=== PATIENT | female | born 1975 | race Caucasian/White ===

== ENCOUNTER → 2021-09-07 13:05 | Outpatient (CLI) | payer BC, SELFPAY | PROVIDERS: Visit Provider Nurse Practitioner Family | DX: Z20.822 Contact with and (suspected) exposure to COVID-19 (principal) | CPT/HCPCS: C9803; U0003; U0005 ==

== ENCOUNTER → 2021-09-19 08:14 | Outpatient (CLI) | payer BC, SELFPAY ==
[2021-09-19 10:19] LABS: Alanine Aminotransferase 15 U/L (12-78); Albumin Level 4.2 g/dl (3.5-5.0); Albumin/Globulin Ratio 1.5 (1.1-1.8); Alkaline Phosphatase 124 U/L (38-126); Anion Gap 11.5 mEq/L (5-15); Aspartate Amino Transferase 26 U/L (14-36); Bilirubin,Total 0.5 mg/dl (0.2-1.3); Blood Urea Nitrogen 11 mg/dl (7-17); Calcium 9.2 mg/dl (8.4-10.2); Carbon Dioxide 27 mmol/L (22.0-30.0); Chloride 103 mmol/L (98-107); Estimated Glomerular Filt Rate 108 ml/min (>60); GFR (African American) 131 ML/MIN (>60); Globulin 2.8 g/dL (1.3-3.2); Glucose 90 mg/dl (74-100); Potassium 4.5 mmoL/L (3.5-5.1); Sodium 137 mmol/L (136-145)
== END ==
PROVIDERS: PCP Internal Medicine; Visit Provider Internal Medicine
DX: G25.0 Essential tremor (principal); K21.9 Gastro-esophageal reflux disease without esophagitis; F41.1 Generalized anxiety disorder; E66.9 Obesity, unspecified; R60.0 Localized edema
CPT/HCPCS: 36415; 80053

== ENCOUNTER → 2021-09-26 08:12 | Outpatient (CLI) | payer BC, SELFPAY | PROVIDERS: Visit Provider Nurse Practitioner | DX: Z20.822 Contact with and (suspected) exposure to COVID-19 (principal) | CPT/HCPCS: C9803; U0003; U0005 ==

== ENCOUNTER → 2021-09-30 09:05 | Outpatient (CLI) | payer BC, SELFPAY | PROVIDERS: Visit Provider Nurse Practitioner | DX: Z20.822 Contact with and (suspected) exposure to COVID-19 (principal) | CPT/HCPCS: C9803; U0003; U0005 ==

== ENCOUNTER 2021-10-26 19:22 | Emergency (ER) | payer BC, SELFPAY ==
[2021-10-26 20:00] VITALS: BP 141/85; PULSE 71; RESP 18; TEMP 36.8; O2SAT 99; BMI 40.4
[2021-10-26 20:16] LABS: UTC Influenza A Antigen Negative (Negative); UTC Strep Screen (Rapid) Negative (Negative)
[2021-10-26 20:17] LABS: UTC Influenza B Antigen Negative (Negative)
--- NOTE | 2021-10-26 20:17 | HMH.EDUTC ---
[facility] [place] Disposition Clinical Impression: Upper respiratory infection, viral Disposition: Home, Self-Care Condition on Discharge: Good Instructions: DI for Viral Upper Respiratory Infection -- Adult, DI for COVID-19 (Suspected or Confirmed ) Additional Instructions: covid swab was sent to lab, call tomorrow for results. self isolate until test results are known to be negative No sign of a bacterial infection. Likely viral. Viruses can take 7-14 days to run their course. Nasal saline and bulb syringe or nose Felisha to remove nasal drainage to help with nasal congestion. Hard to eat, drink, sleep with nasal congestion so important to keep this cleaned out. Monitor temp. Tylenol or Motrin as needed for pain or fever Encourage fluids, water, Gatorade, Powerade, Pedialyte if /toddler/child Warm salt water gargles Warm fluids Sore throat lozenges Sleep elevated Humidifier/vaporizer Follow-up immediately for new or worsening symptoms or no noticeable improvement over the next 48-72 hours. Referrals: Ale Deluna MD [Primary Care Provider] - Time of Disposition: 20:21 Medical Decision Making - Lang Inquiry Pt receiving controlled substance: No - Lab Data Lab Results 10/26/21 20:12: Influenza Type A Ag Negative, Influenza Type B Ag Negative 10/26/21 20:12: Strep Scn Rapid Clinic Negative Orders (Tests/Meds): ORDERS Category Date Time Status Covid-19 Nasal PCR ([facility]) Routine Lab 10/26/21 20:00 Received Strep Screen Confirmation Stat Micro 10/26/21 20:12 Received [facility] [place] HPI - General Chief complaint: Urgent Treatment Center Stated complaint: sore throat, cough, BARNEY body aches covid test Time Seen by Provider: 10/26/21 20:18 Mode of Arrival: Ambulatory Source of Information: Patient Limitations: No Limitations - History of Present Illness Provider Complaint: 46 yr old female presents for sore throat,fever,body aches, nasal congestion and cough that started yesterday and did a home test that had a faint line - Related Data Allergies Allergy/AdvReac Type Severity Reaction Status Date / Time No Known Allergies Allergy Unverified 03/17/18 13:48 [facility] History - Hepatitis A Screen Attestation statement:: This patient has been screened for Hepatitis A risk factors. I have reviewed the patient's past medical history: Yes Medical History: Reports:: Asthma ROS Obtained: Yes Systems reviewed as appropriate & no additional complaints - Constitutional Constitutional: Reports system reviewed and no additional complaints, except as docu, Reports body ache, Reports chills, Reports fever(s) - Eyes Eyes: Reports system reviewed and no additional complaints, except as docu, Denies blurry vision - ENT Ears, Nose, Mouth, and Throat: Reports system reviewed and no additional complaints, except as docu, Reports nasal congestion, Reports nasal discharge, Reports sore throat - Cardiovascular Cardiovascular: Reports system reviewed and no additional complaints, except as docu, Denies chest pain - Respiratory Respiratory: Reports system reviewed and no additional complaints, except as docu, Reports cough - Gastrointestinal Gastrointestingal: Reports: system reviewed and no additional complaints, except as docu. Denies: abdominal pain - Musculoskeletal Musculoskeletal: Reports system reviewed and no additional complaints, except as docu, Denies joint pain - Integumentary/Breasts Skin/Breast: Reports system reviewed and no additional complaints, except as docu, Denies rash - Neurologic Neurologic: Reports system reviewed and no additional complaints, except as docu, Denies dizziness - Endocrine Endocrine: Reports system reviewed and no additional complaints, except as docu, Denies fatigue - Hematologic/Lymphatic Henatologic/Lymphatic: Reports system reviewed and no additional complaints, except as docu, Denies easy bruising - Allergic/Immunologic Allergic/Immunologic: Reports system reviewed a
[2021-10-26 20:20] VITALS: BP 141/85; PULSE 71; RESP 18; TEMP 36.8; O2SAT 99
== END 2021-10-26 20:25 | disposition home or self-care (01) ==
PROVIDERS: Emergency Provider Nurse Practitioner Family; PCP Internal Medicine
DX: J06.9 Acute upper respiratory infection, unspecified (principal); J02.9 Acute pharyngitis, unspecified
CPT/HCPCS: 87804; 87880; 99203; 99212; 99213; C9803; G0463; U0003; U0005

== ENCOUNTER 2021-11-27 09:52 | Emergency (ER) | payer BC, SELFPAY ==
--- NOTE | 2021-11-27 10:04 | XR_ITS ---
FINAL REPORT TECHNIQUE: Chest PA & Lateral CLINICAL HISTORY: postcovid x 1 mos ago, non smoker, persistant cough FINDINGS: 2 views of the chest were performed. There are multiple sternotomy wires. The heart size is normal. The mediastinum is within normal limits. There is no acute cardiopulmonary process. There are no pleural effusions. There is no pneumothorax. The bony thorax appears intact. IMPRESSION: No acute cardiopulmonary process. Reviewed, Interpreted and Dictated by Salinas Lorenzo MD Transcribed by Abelardo Sandhu Authenticated by Salinas Lorenzo MD on 11/27/2021 12:26:42 PM [facility]
[2021-11-27 11:12] VITALS: BP 144/79; PULSE 69; RESP 18; TEMP 36.8; O2SAT 97; BMI 40.7
--- NOTE | 2021-11-27 11:52 | HMH.EDUTC ---
[facility] [place] Clinical Impression: Bronchitis Sinusitis Qualifiers: Sinusitis location: unspecified location Chronicity: unspecified Qualified Code(s): J32.9 - Chronic sinusitis, unspecified Disposition: Home, Self-Care Condition on Discharge: Good Instructions: Sinusitis, DI for Sinusitis Additional Instructions: ? Start antibiotic today. Be sure to complete entire prescription even if feeling better ? Monitor temp. Tylenol every 4 hours as needed and / or ibuprofen every 6 hours as needed ( As long as your primary care physician has told you that it ok to take both. For fever/aches/pains ER if no less than 101 despite Tylenol or Motrin ? Humidifier/vaporizer or hot steamy shower ? Inhaler every 4-6 hours as needed like we discussed. If unsure how to use it, ask pharmacist to demonstrate how. Should help open airways and improve cough, wheezing, and shortness of breath ? Mucinex during the day for your cough and cough suppressant only at night. Be sure to drink lots of water. Insurance may not cover a prescriptions for mucinex. Might be cheaper to get 400mg tablets and take 2 tablet in the morning, mid-day and evening with lots of water. *Start steroid today. Helps with inflammation therefore, cough and wheezing. Follow directions on the package. Reviewed side effects. Patient reports taking them before. Follow up IMMEDIATELY for new or worsening of symptoms OR no noticeable improvement over the next 48-72 hours. 911 immediately for any life threatening symptoms such as chest pain or difficulty breathing Prescriptions: Benzonatate [Benzonatate 100mg cap] 100 mg PO Q8HP PRN #15 cap PRN Reason: Cough Transmission Status: Received by [facility] Amoxicillin/Potassium Clav [Amox-Clav 875-125 mg Tablet] 1 tab PO BID #20 tab Transmission Status: Received by [facility] predniSONE [Prednisone 20mg Tab] 20 mg PO BID #10 tab Transmission Status: Received by [facility] Referrals: Ale Deluna MD [Primary Care Provider] - As needed Time of Disposition: 12:08 Medical Decision Making - Lang Inquiry Pt receiving controlled substance: No Lang was queried for this patient: No Vital Signs: 11/27/21 11:12 11/27/21 12:25 Temperature 98.3 F 98.3 F Temperature Source Oral Pulse Rate 69 Pulse Rate [Left] 69 Respiratory Rate 18 18 Blood Pressure 144/79 H Blood Pressure [Right Arm] 144/79 H Blood Pressure Mean [Right Arm] 100 02 Sat by Pulse Oximetry 97 - Radiology Data #1 Image(s): Chest Image Reviewed: Yes I reviewed the patient's radiology image Preliminary Findings: Normal/NAD [facility] [place] - General Stated complaint: cough, congestion Time Seen by Provider: 11/27/21 11:52 Mode of Arrival: Ambulatory Source of Information: Patient Limitations: No Limitations Description of Symptoms (Recalled from Triage Doc. by RN): pt had covid about one mo ago. cough never went away. pt states her cough and chest congestion is worsening. HEENT Symptoms (Recalled from RN notes): No Resp Symptoms (Recalled from RN notes): Yes Skin Symptoms (Recalled from RN notes): No MS Symptoms (Recalled from RN notes): No Functional Status (Recalled from RN notes): wnl - History of Present Illness Provider Complaint: Patient states that she had COVID about a month ago and doesnt feel like she really got over it she has been sick on and off since States that she has bene having sinus pain and pressure, cough, and drianage States that she feels like it is in her sinuses draining into her chest area so she came in to get checked out - Related Data Previous Rx's Medication Instructions Recorded Amoxicillin/Potassium Clav 1 tab PO BID #20 tab 11/27/21 [Amox-Clav 875-125 mg Tablet] Benzonatate [Benzonatate 100mg 100 mg PO Q8HP PRN #15 cap 11/27/21 cap] predniSONE [Prednisone 20mg 20 mg PO BID #10 tab 11/27/21 Tab] Allergies Allergy/AdvReac Type Severity Reaction Sta
[2021-11-27 12:25] VITALS: BP 144/79; PULSE 69; RESP 18; TEMP 36.8
== END 2021-11-27 12:26 | disposition home or self-care (01) ==
PROVIDERS: Emergency Provider Nurse Practitioner; PCP Internal Medicine
DX: J20.9 Acute bronchitis, unspecified (principal); J32.9 Chronic sinusitis, unspecified
CPT/HCPCS: 71046; 99213; G0463

== ENCOUNTER → 2023-06-26 09:22 | Outpatient (CLI) | payer BC, OTHER, SELFPAY ==
[2023-06-26 09:44] LABS: Basophils # 0.1 K/mm3 (0-0.2); Basophils % 0.8 % (0.1-2.0); Eosinophils # 0.2 K/mm3 (0.0-0.4); Eosinophils % 3.4 % (0.1-12.0); Hematocrit 34.9 % (37.0-47.0); Hemoglobin 11.7 g/dL (12.2-16.2); Lymphocytes # 1.8 K/mm3 (0.7-4.5); Lymphocytes % 27.5 % (10-50); Mean Corpuscular HGB Conc 33.4 g/dL (31.8-35.4); Mean Corpuscular Hemoglobin 28.2 pg (27.0-31.2); Mean Corpuscular Volume 84.5 fl (81-99); Mean Platelet Volume 9.6 fl (7.4-10.4); Monocytes # 0.4 K/mm3 (0.1-1.0); Monocytes % 6.2 % (1.7-9.3); Neutrophils % 62.1 % (37.0-80.0); Platelet Count 294 K/mm3 (142-424); Red Blood Count 4.13 M/mm3 (4.20-5.40); Red Cell Distribution Width 14.8 % (11.5-17.5); White Blood Count 6.4 K/mm3 (4.8-10.8)
[2023-06-26 10:33] LABS: Alanine Aminotransferase 22 U/L (12-78); Albumin Level 4.2 g/dl (3.5-5.0); Albumin/Globulin Ratio 1.3 (1.1-1.8); Alkaline Phosphatase 154 U/L (38-126); Anion Gap 15.4 mEq/L (5-15); Aspartate Amino Transferase 32 U/L (14-36); Bilirubin,Total 0.5 mg/dl (0.2-1.3); Blood Urea Nitrogen 14 mg/dl (7-17); Calcium 9.3 mg/dl (8.4-10.2); Carbon Dioxide 25 mmol/L (22.0-30.0); Chloride 102 mmol/L (98-107); Estimated Glomerular Filt Rate 90 ml/min (>60); GFR (African American) 109 ML/MIN (>60); Globulin 3.3 g/dL (1.3-3.2); Glucose 101 mg/dl (74-100); Potassium 4.4 mmoL/L (3.5-5.1); Sodium 138 mmol/L (136-145); Total Protein,Serum 7.5 g/dl (6.3-8.2)
== END ==
PROVIDERS: PCP Internal Medicine; Visit Provider Internal Medicine
DX: Z12.11 Encounter for screening for malignant neoplasm of colon (principal); R25.1 Tremor, unspecified
CPT/HCPCS: 36415; 80053; 85025

== ENCOUNTER 2023-07-06 09:00 | Emergency (ER) | payer BC, SELFPAY ==
[2023-07-06 09:30] VITALS: BP 154/89; PULSE 66; RESP 18; TEMP 36.9; O2SAT 95; BMI 42.8
--- NOTE | 2023-07-06 09:31 | EXP.UTC ---
Discharge Plan Disposition Patient Disposition: Home, Self-Care Condition: Good Prescriptions Prescriptions: New benzonatate [benzonatate] 100 mg capsule 100 mg PO TIDP PRN (Reason: Cough) Qty: 30 0RF methylprednisolone 4 mg Tablets,Dose Pack 4 mg PO DIRECTED Qty: 21 0RF guaifenesin [Mucinex] 600 mg tablet extended release 12hr 600 - 1,200 mg PO BIDP PRN (Reason: Congestion) Qty: 30 0RF azithromycin [Zithromax] 250 mg tablet 250 mg PO UD DOSE PK Qty: 6 0RF Rx Instructions: Take two (2) tablets today, then one (1) tablet days #2 thru #5 No Action citalopram 40 mg tablet 40 mg PO DAILY Patient Comments: TAKE ONE TABLET BY MOUTH EVERY DAY phentermine 37.5 mg tablet 37.5 mg PO DAILY Patient Comments: TAKE ONE TABLET BY MOUTH EVERY DAY propranolol 10 mg tablet 10 mg PO DAILY Patient Comments: TAKE ONE TABLET BY MOUTH TWICE DAILY amoxicillin 875 mg tablet 875 mg PO BID Patient Comments: TAKE ONE TABLET BY MOUTH EVERY TWELVE HOURS FOR 10 DAYS -- FINISH ALL MEDICINE -- pantoprazole 40 mg tablet,delayed release (DR/EC) 40 mg PO DAILY Patient Comments: TAKE ONE TABLET BY MOUTH EVERY DAY furosemide 20 mg tablet 20 mg PO NEEDED PRN (Reason: fluids) Patient Comments: TAKE ONE TABLET BY MOUTH EVERY DAY NEEDED albuterol sulfate 90 mcg/actuation HFA aerosol inhaler 2 puff INHALATION NEEDED PRN (Reason: Wheezing) Patient Comments: INHALE 2 PUFFS BY MOUTH UNTIL DIRECTED TO STOP. USE ONLY NEEDED FOR SHORTNESS OF BREATH fluticasone propionate 50 mcg/actuation spray,suspension 1 spray INTRANASAL BID Patient Comments: SPRAY 1 SPRAY IN EACH NOSTRIL TWICE DAILY DIRECTED Referrals Follow up/Referrals: Ale Deluna MD [Primary Care Provider] - See instructions Activity Restrictions/Add. Instructions Additional Instructions/Restrictions: Drink plenty of fluids. Take tylenol or ibuprofen for pain or fever. Take the medications as directed. Follow up with your regular doctor. GO TO THE ER FOR ANY WORSENING SYMPTOMS Clinical Impressions Clinical Impression: Sinusitis, Bronchitis Stand Alone Forms Stand Alone Forms: Work/School Release Instructions Patient Instructions: Sinusitis, DI for Sinusitis Discharge ED Provider: Gonsalo Le [facility] General Stated complaint: persistant cough, sob Time Seen by Provider: 07/06/23 09:31 History of Present Illness Location: pelvis (She states that for the past 4 days he has had a productive cough with greenish sputum. She has sinus congestion also. ) Related Data Home Medications Medication Instructions Recorded Confirmed albuterol sulfate 90 mcg/actuation 2 puff inhalation NEEDED PRN 07/06/23 07/06/23 aerosol inhaler Wheezing amoxicillin 875 mg tablet 875 mg PO BID abx 07/06/23 07/06/23 citalopram 40 mg tablet 40 mg PO DAILY 07/06/23 07/06/23 fluticasone propionate 50 1 spray intranasal BID 07/06/23 07/06/23 mcg/actuation nasal spray,suspension furosemide 20 mg tablet 20 mg PO NEEDED PRN fluids 07/06/23 07/06/23 pantoprazole 40 mg tablet,delayed 40 mg PO DAILY 07/06/23 07/06/23 release phentermine 37.5 mg tablet 37.5 mg PO DAILY 07/06/23 07/06/23 propranolol 10 mg tablet 10 mg PO DAILY 07/06/23 07/06/23 Previous Rx's Medication Instructions Recorded azithromycin 250 mg tablet 250 mg PO UD DOSE PK #6 tabs 07/06/23 (Zithromax) benzonatate 100 mg capsule 100 mg PO TIDP PRN Cough #30 caps 07/06/23 guaifenesin 600 mg tablet, 600 - 1,200 mg PO BIDP PRN 07/06/23 extended release 12 hr (Mucinex) Congestion #30 tabs methylprednisolone 4 mg tablets in 4 mg PO DIRECTED #21 tabs 07/06/23 a dose pack Allergies Allergy/AdvReac Type Severity Reaction Status Date / Time No Known Allergies Allergy Verified 07/06/23 09:55 [facility] Disclaimer: The information contained in this section ma
--- NOTE | 2023-07-06 09:34 | XR_ITS ---
FINAL REPORT CLINICAL HISTORY: cough for three weeks COMPARISON: 11/27/2021 FINDINGS: Two views of the chest were obtained. The heart size and pulmonary vascularity are within normal limits. There is evidence of prior median sternotomy. Mild right middle lobe opacity likely represents atelectasis or pneumonia. There is no pneumothorax. The bony thorax is intact. IMPRESSION: Mild right middle lobe opacity, likely atelectasis or pneumonia. Reviewed, Interpreted and Dictated by Severiano Curry III, MD Transcribed by Layne Quiñones Authenticated and [facility]
[2023-07-06 10:11] VITALS: BP 154/89; PULSE 66; RESP 18; TEMP 36.9; O2SAT 95
== END 2023-07-06 10:11 | disposition home or self-care (01) ==
PROVIDERS: Emergency Provider Nurse Practitioner Family; PCP Internal Medicine
DX: J01.90 Acute sinusitis, unspecified (principal); J20.9 Acute bronchitis, unspecified
CPT/HCPCS: 71046; 87635; 99212; 99214; G0463

== ENCOUNTER 2023-07-20 06:35 | Emergency (ER) | payer BC, SELFPAY ==
[2023-07-20 06:36] VITALS: BP 182/98; PULSE 82; RESP 20; TEMP 36.4; O2SAT 100; BMI 42.8
--- NOTE | 2023-07-20 06:44 | XR_ITS ---
FINAL REPORT TECHNIQUE: Single view chest CLINICAL HISTORY: soa, recent treatment of pna COMPARISON: 07/06/2023 FINDINGS: A single view of the chest was obtained. The heart is mildly enlarged. Patient is status post median sternotomy. The lungs are clear. There is no pneumothorax. Osseous structures are unremarkable. IMPRESSION: No acute cardiopulmonary process. Reviewed, Interpreted and Dictated by Salinas Lorenzo MD Transcribed by Ana Horta Authenticated and [facility]
--- NOTE | 2023-07-20 06:48 | HMH.EDGENADL ---
Discharge Plan Disposition Patient Disposition: Home, Self-Care Prescriptions Prescriptions: New prednisone 50 mg tablet 50 mg PO DAILY 5 Days Qty: 5 0RF benzonatate 100 mg capsule 100 mg PO Q6H PRN (Reason: cough) Qty: 30 0RF budesonide-formoterol [Symbicort] 80-4.5 mcg/actuation HFA aerosol inhaler 2 inh inhalation BID Qty: 10.2 4RF albuterol sulfate 90 mcg/actuation HFA aerosol inhaler 4 inh inhalation Q4H PRN (Reason: shortness of breath or wheezing) Qty: 8.5 5RF Rx Instructions: until breathing returns to target peak flow/parameters No Action benzonatate [benzonatate] 100 mg capsule 100 mg PO TIDP PRN (Reason: Cough) Qty: 30 0RF methylprednisolone 4 mg Tablets,Dose Pack 4 mg PO DIRECTED Qty: 21 0RF guaifenesin [Mucinex] 600 mg tablet extended release 12hr 600 - 1,200 mg PO BIDP PRN (Reason: Congestion) Qty: 30 0RF citalopram 40 mg tablet 40 mg PO DAILY Patient Comments: TAKE ONE TABLET BY MOUTH EVERY DAY phentermine 37.5 mg tablet 37.5 mg PO DAILY Patient Comments: TAKE ONE TABLET BY MOUTH EVERY DAY propranolol 10 mg tablet 10 mg PO DAILY Patient Comments: TAKE ONE TABLET BY MOUTH TWICE DAILY amoxicillin 875 mg tablet 875 mg PO BID Patient Comments: TAKE ONE TABLET BY MOUTH EVERY TWELVE HOURS FOR 10 DAYS -- FINISH ALL MEDICINE -- pantoprazole 40 mg tablet,delayed release (DR/EC) 40 mg PO DAILY Patient Comments: TAKE ONE TABLET BY MOUTH EVERY DAY furosemide 20 mg tablet 20 mg PO NEEDED PRN (Reason: fluids) Patient Comments: TAKE ONE TABLET BY MOUTH EVERY DAY NEEDED albuterol sulfate 90 mcg/actuation HFA aerosol inhaler 2 puff INHALATION NEEDED PRN (Reason: Wheezing) Patient Comments: INHALE 2 PUFFS BY MOUTH UNTIL DIRECTED TO STOP. USE ONLY NEEDED FOR SHORTNESS OF BREATH fluticasone propionate 50 mcg/actuation spray,suspension 1 spray INTRANASAL BID Patient Comments: SPRAY 1 SPRAY IN EACH NOSTRIL TWICE DAILY DIRECTED azithromycin [Zithromax] 250 mg tablet 250 mg PO UD DOSE PK Qty: 6 0RF Rx Instructions: Take two (2) tablets today, then one (1) tablet days #2 thru #5 Referrals Follow up/Referrals: Ale Deluna MD [Primary Care Provider] - See instructions Qing Gage MD [Physician] - See instructions Activity Restrictions/Add. Instructions Additional Instructions/Restrictions: Call your family doctor to establish care for this visit to the emergency department and schedule follow-up within 48 hours to ensure improvement. If you have any worsening of your condition or any other concerning signs or symptoms, return to the emergency department or your primary care doctor for further evaluation. Pulmonology information here - call to schedule an appointment. Budesonide inhaler twice daily. Take prednisone daily for 5 days in the morning with plenty of food and water to prevent GI upset. Albuterol inhalers have been sent to the pharmacy. 4 puffs every 4 hours while awake for the next 48 hours, as they work in synergy with steroids. Clinical Impressions Clinical Impression: Asthma exacerbation Discharge ED Provider: R[facility] HPI <Baudilio Qureshi MD - Last Filed: 07/20/23 07:07> General Chief complaint: Shortness of Breath/Dyspnea Stated complaint: has pneumonia, not improving Time Seen by Provider: 07/20/23 06:35 History of Present Illness HPI narrative: 48-year-old female, history of asthma, history of approximate 1 month of cough and shortness of breath, presents for persistent symptoms. She reports that she was initially treated with amoxicillin. She was then treated with Levaquin for 1 week, completing the course of medication 1 week ago. She reports that she is having persistent cough and shortness of breath. She reports some pain under her right shoulder blade. She denies any chest pain. She denies fe
[2023-07-20 07:01] VITALS: BP 149/70
[2023-07-20 07:15] VITALS: PULSE 65; PULSE 68
--- NOTE | 2023-07-20 07:20 | PC.NURSE ---
RT at BS
[2023-07-20 07:31] VITALS: BP 135/71
[2023-07-20 08:01] VITALS: BP 131/69
[2023-07-20 08:38] VITALS: BP 131/69; PULSE 65; RESP 16; TEMP 36.4; O2SAT 100
== END 2023-07-20 08:35 | disposition home or self-care (01) ==
PROVIDERS: Emergency Provider Emergency Medicine; PCP Internal Medicine
DX: R06.02 Shortness of breath (principal); R05.9 Cough, unspecified; J45.909 Unspecified asthma, uncomplicated
CPT/HCPCS: 71045; 99284

== ENCOUNTER → 2023-08-24 09:46 | Outpatient (CLI) | payer BC, SELFPAY ==
--- NOTE | 2023-08-24 09:49 | CA_ITS ---
APPROVED REPORT EXAM: Comprehensive 2D, Doppler, and color-flow Echocardiogram Refurbish Technician: Sita Hernandez RDCS Ht: 5 ft 9 in Wt: 306lbs BSA: 2.48 BP: 126/87 mmHg Indications: SOA,H/O ASD REPAIR M-Mode Dimensions RVDd 2.97 cm (0.9-2.6) LA Diam 4.31 cm (1.9-4.0) LVDd 6.29 cm (3.5-5.7) LVDs 4.38 cm (3.5-5.7) IVSd 0.69 cm (0.6-1.1) PWd 0.91 cm (0.6-1.1) EF (Teich) 56.70% FS 30.40% EDV (Teich) 200.50 mL ESV (Teich) 86.80 mL LV Diastology E Decel Time 207 (160-240 msec) E/A Ratio 1.6 Mitral Valve MV E Max Joselito. 85.0 (40-130 cm/s) MV A Velocity 53.0 (40-130 cm/s) E/A Ratio 1.61 MV PHT 61.0 ms Left Ventricle The left ventricle is normal size. The left ventricular systolic function is normal. The left ventricular ejection fraction is within the normal range. There is normal left ventricular wall thickness. There is normal LV segmental wall motion. The left ventricular diastolic function is normal. LVEF is 55%. Right Ventricle The right ventricle is moderately dilated. Right ventricle is mildly hypokinetic. Atria The left atrium size is mildly dilated. The right atrium size is mildly dilated. s/p ASD repair. There is possible Doppler evidence of residual left to right interatrial shunt present. Aortic Valve The aortic valve opens well. There is no aortic valvular stenosis. Trace aortic regurgitation. Mitral Valve The mitral valve is normal in structure. No evidence of mitral valve stenosis. Trace mitral regurgitation. Tricuspid Valve The tricuspid valve leaflets are thin and pliable. Trace tricuspid regurgitation. There is insufficient TR jet to estimate RVSP. Pulmonic Valve The pulmonary valve is normal in structure. Trace pulmonic regurgitation. Great Vessels The aortic root is normal in size. The ascending aorta is normal in size. IVC is normal in size and collapses >50% with inspiration. Pericardium There is no pericardial effusion. Other Information Study Quality: Fair Conclusion Normal LV systolic function. Moderate RV dilation with mild RV dysfunction. Mild biatrial dilation. No significant valvular stenosis or regurgitation. Possible left right interatrial shunt on color Doppler. Further evaluation with ATIF + agitated saline administration (bubble study) is recommended to assess residual shunt in the setting of known prior ASD repair. Electronically signed by : Marylou Garcia MD 08/30/2023 20:42:13
== END ==
LOC: RT 09:47
PROVIDERS: PCP Internal Medicine; Visit Provider Internal Medicine Pulmonary Disease
DX: R06.02 Shortness of breath (principal)
CPT/HCPCS: 93306

== ENCOUNTER 2023-10-06 10:02 | Outpatient (CLI) | payer BC, SELFPAY | END 2023-10-06 23:59 | LOC: RT 10:03 | PROVIDERS: PCP Internal Medicine; Visit Provider Internal Medicine Pulmonary Disease | DX: R06.09 Other forms of dyspnea (principal) | CPT/HCPCS: 94060; 94618; 94726; 94729 ==

== ENCOUNTER 2023-10-15 12:45 | Outpatient (CLI) | payer BC, SELFPAY ==
--- NOTE | 2023-10-15 12:45 | MR_ITS ---
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 Evaluate for Qp:Qs ratio TECHNIQUE Image Acquisition: Cardiac magnetic resonance (CMR) was performed on Siemens Espree MRI 1.5T scanner. Software platform sequences were performed using the Siemens [employer] MR B19 platform. A set of three-plane, low-resolution, large [id number] localizers were initially acquired. Then axial, coronal, sagittal TrueFISP, as well as axial HASTE images, were obtained. These were followed by gated TrueFISP breathold cinematic sequences obtained in the short axis with 8 mm slices and 2 mm gaps, 2-chamber (vertical long axis), 3-chamber, 4-chamber (horizontal long axis). A bolus of contrast was injected intravenously with first-pass sequences obtained in the short axis and four-chamber planes. After approximately 10 minutes, a TI salesperson women's hats sequence was performed to determine the optimal TI time. Using the optimized TI time, delayed contrast enhancement segmented inversion???recovery TurboFLASH sequences were obtained in the short axis, 2-chamber, 3-chamber, and 4-chamber projections. 2D-velocity phase mapping was performed. Functional parameters were calculated by offline analysis on an independent workstation ([employer], [employer]). Contrast: ProHance??? (Gadoteridol) FINDINGS MORPHOLOGY AND FUNCTION Left ventricle: The left ventricle is normal in size. The indexed left ventricular end-diastolic volume (LVEDVi) is 84 ml/m2 (reference range 57-105 ml/m2 in males, 56-96 ml/m2 in females). Low-normal left ventricular systolic function is present. There is normal left ventricular wall thickness. There are no regional wall motion abnormalities noted. LVEF is calculated at 53.9% (reference range 57-77%). Right ventricle: The right ventricle is upper limit of normal in size. The indexed right ventricular end-diastolic volume (RVEDVi) is 98 ml/m2 (reference range 61-121 ml/m2 in males, 48-112 ml/m2 in females). There is mild reduction in right ventricular systolic function present. RVEF is calculated at 41.0 % (reference range 52-72% in males, 51-71% in females). Atria: The left atrium is normal in size. The maximum indexed left atrial volume is 41 ml/m2 (reference range 26-52 ml/m2 in males, 27-53 ml/m2 in females). The right atrium is normal in size. The maximum indexed right atrial volume is 42.9 ml/m2 (reference range 18-90 ml/m2). Aorta: The diameter of the aortic annulus is normal, measuring 24 mm (coronal view reference range 21-30 mm in males, 19-27 mm in females). The diameter of the aortic sinus is normal, measuring 30 mm (coronal view reference range 25-42 mm in males, 24-36 mm in females). The diameter of the sinotubular junction is normal, measuring 25 mm (coronal view reference range 18-32 mm in males, 18-28 mm in females). The diameters of the ascending and descending thoracic aorta are normal. Main pulmonary artery: The main pulmonary artery diameter is normal. Pericardium: The pericardial thickness is normal. The pericardial thickness measures 2.5 cm (normal < 4.0 cm). There is no pericardial effusion. VALVES The valvular morphologies in the visualized sequences appear normal. There is no significant valvular stenosis or regurgitation of the mitral, aortic, tricuspid, or pulmonic valve noted visually. Systolic anterior motion of the mitral valve is not visualized. Ratio of pulmonary to systemic flow, Qp:Qs ratio = 1.24 (normal < or = 1.2), demonstrating possible evidence of intracardiac shunt. TISSUE CHARACTERIZATION Resting Perfusion: Normal myocardial blood flow at rest. No evidence of resting hypoperfusion. Myocardial Fibrosis and/or edema: Normal gadolinium kinetics are present. No evidence of late gadolinium enhancement is noted, consistent with absence of myocardial scarring, infarction, or necrosis. T2-weighted imaging demonstrates no evidence of myocardial edema or inflammation. OTHER No other significant findings are noted. However, this exam is focused on the cardiac structure and function. IMPRESSION Normal LV size with low-normal LV systolic function. LVEDVi= 84 ml/m2 and LVEF= 53.9%. RV size at upper limit of normal with mild reduction in RV systolic function. RVEDVi= 98 ml/m2 and RVEF= 42.9%. No atrial enlargement. No CMR evidence of myocardial scarring, infarction, or necrosis. No evidence of myocardial edema or inflammation. Perfusion analysis demonstrates normal blood flow at rest with no evidence of resting hypoperfusion. Ratio of pulmonary to systemic flow, Qp:Qs ratio = 1.24 (normal < or = 1.2), demonstrating possible evidence of intracardiac shunt. This CMR demonstrates normal LV systolic function, but mildly reduced RV function and Qp:Qs of 1.24 in the setting of previous ASD s/p repair and TTE showing possible residual shunt. Further evaluation with ATIF for confirmation of residual ASD and sizing is recommended. COMPARISON None CRITICAL RESULT None COMMUNICATION Per this written report The findings of this cardiac MR were reviewed, reported, and signed by Kyler Garcia MD (Blending Tank Helper). Conclusion Electronically signed by : Marylou Garcia MD 10/19/2023 00:14:19
[2023-10-15] MEDS: SODIUM CHLORIDE 0.9% 10ML SYR (RAD ONLY) 10 ML IV (14:49)
[2023-10-15] MEDS: 0.9 % SODIUM CHLORIDE 50 ML VIAL IV (14:49)
[2023-10-15] MEDS: GADOTERIDOL INJ 17ML SYRINGE 30 ML IV (14:49)
== END 2023-10-15 23:59 ==
LOC: RAD 12:45
PROVIDERS: PCP Internal Medicine; Visit Provider Physician Assistant
DX: R06.09 Other forms of dyspnea (principal); R93.1 Abnormal findings on diagnostic imaging of heart and coronary circulation
CPT/HCPCS: 75561; A9576

== ENCOUNTER 2023-11-05 07:26 | Day surgery (SDC) | payer BC, SELFPAY ==
[2023-11-04 10:07] VITALS: BMI 43.3
--- NOTE | 2023-11-05 08:05 | ECG_ITS ---
APPROVED REPORT Exam: Resting ECG HR:71 bpm ECG Measurements Heart Rate 71 AXES LA 168 P 33 QRSd 106 QRS 49 QT 386 T 70 QTc 408 Conclusion SINUS RHYTHM NONSPECIFIC ST & T-WAVE ABNORMALITY BORDERLINE ECG UNCONFIRMED REPORT Electronically signed by : Ryan Damico MD 11/05/2023 19:58:54
[2023-11-05 08:07] VITALS: BP 163/99; PULSE 79; RESP 18; TEMP 36.5; O2SAT 98
[2023-11-05] MEDS: LACTATED RINGERS 1000ML 1,000 ML 25 ML IV (08:18)
--- NOTE | 2023-11-05 08:24 | EXP.ANES.CKL ---
[facility] Disclaimer: The information contained in this section may have been updated after the patient was seen, as this information can be updated by other users. Medical History Abnormal echocardiogram Allergic rhinitis Asthma Dyspnea on exertion Left to right cardiac shunt Pulmonary edema Surgical History History of open heart surgery History of placement of ear tubes History of repair of atrial septal defect Family History Other Asthma Social History (Updated 11/05/23 @ 08:14 by Luz Maria Alicea RN) Smoking Status: Never smoker alcohol intake: never substance use type: denies use current occupational status: employed Travel in the last 8 weeks: None caffeine: Yes [facility] Anesthesia Checklist Patient Identification Patient Identification: Verbal (Name & ) Structural Data Admitted From: Home Planned Operative Procedure/s: ATIF Consent for Planned Operative Procedure(s) Verified: Yes Airway Assessment Mallampati Score:: Class II C-Spine Mobility Assessed: Yes TMJ Mobility Assessed: Yes Dentition: Good Dentition Neurological Assessment Level of Consciousness: Awake, Alert and Appropriate Anesthesia Plan Anesthesia Risk discussed: Yes ASA Class: II Anesthesia Type: MAC
[2023-11-05 08:32] LABS: Basophils # 0.1 K/mm3 (0-0.2); Eosinophils # 0.1 K/mm3 (0.0-0.4); Eosinophils % 1.8 % (0.1-12.0); Hematocrit 38.6 % (37.0-47.0); Hemoglobin 12.2 g/dL (12.2-16.2); Lymphocytes # 1.4 K/mm3 (0.7-4.5); Lymphocytes % 19.3 % (10-50); Mean Corpuscular HGB Conc 31.6 g/dL (31.8-35.4); Mean Corpuscular Hemoglobin 27.5 pg (27.0-31.2); Mean Corpuscular Volume 86.8 fl (81-99); Mean Platelet Volume 8.5 fl (7.4-10.4); Monocytes # 0.4 K/mm3 (0.1-1.0); Monocytes % 5.2 % (1.7-9.3); Neutrophils # 5.1 K/mm3 (1.8-7.8); Neutrophils % 72.7 % (37.0-80.0); Platelet Count 320 K/mm3 (142-424); Red Blood Count 4.44 M/mm3 (4.20-5.40)
[2023-11-05 08:37] LABS: Chloride 105 mmol/L (98-107)
[2023-11-05 08:38] LABS: Sodium 137 mmol/L (136-145)
[2023-11-05 08:40] LABS: Alanine Aminotransferase 22 U/L (12-78); Albumin Level 4.2 g/dl (3.5-5.0); Alkaline Phosphatase 173 U/L (38-126); Aspartate Amino Transferase 28 U/L (14-36); Bilirubin,Total 0.3 mg/dl (0.2-1.3); Blood Urea Nitrogen 10 mg/dl (7-17); Carbon Dioxide 27 mmol/L (22.0-30.0); Creatinine Clearance Estimated 94 mL/min (50-200); Estimated Glomerular Filt Rate 77 ml/min (>60); GFR (African American) 93 ML/MIN (>60)
[2023-11-05 08:41] LABS: Albumin/Globulin Ratio 1.2 (1.1-1.8); Calcium 8.8 mg/dl (8.4-10.2); Globulin 3.6 g/dL (1.3-3.2); Glucose 94 mg/dl (74-100); Total Protein,Serum 7.8 g/dl (6.3-8.2)
--- NOTE | 2023-11-05 08:46 | CA_ITS ---
APPROVED REPORT EXAM: Comprehensive 2D, Doppler, and color-flow Echocardiogram Installers Mechanical: Roxie HarleyITZEL Ht: 5 ft 9 in Wt: 306lbs BSA: 2.48 BP: 125/85 mmHg Indications: PT HAS HAD PRIOR ASD REPAIR ? RESUIDAL SHUNT,SOA Left Ventricle The left ventricle is normal size. The left ventricular systolic function is normal. The left ventricular ejection fraction is within the normal range. There is normal left ventricular wall thickness. There is normal LV segmental wall motion. LVEF is 55%. Right Ventricle Right ventricle is mildly dilated. Right ventricle is mildly hypokinetic. Atria The left atrium size is normal. The right atrium size is normal. s/p remote history of surgical ASD repair. There is a small sized, residual ASD present with diameter of approximately 0.04 cm. There is intermittent left to right interatrial shunt on color Doppler. Agitated saline administration at rest and with Valsalva demonstrates intermittent shunting. Qp:Qs ratio=1.1 (LVOT=2.1 cm, RVOT=3.2 cm, LVOT VTI=24.5 cm, RVOT VTI=9.5 cm). Aortic Valve The aortic valve opens well. The aortic valve is trileaflet. There is no aortic valvular stenosis. No aortic regurgitation is present. Mitral Valve The mitral valve is normal in structure. No evidence of mitral valve stenosis. Trace mitral regurgitation. Tricuspid Valve The tricuspid valve leaflets are thin and pliable. Mild tricuspid regurgitation. RVSP is 19 mmHg + RA pressure. Pulmonic Valve The pulmonary valve is normal in structure. Trace pulmonic regurgitation. Great Vessels The aortic root is normal in size. The ascending aorta is normal in size. Pericardium There is no pericardial effusion. Other Information Study Quality: Fair Conclusion Normal LV systolic function. Mild RV dilation with mild reduction in RV function. s/p remote history of surgical ASD repair. Small sized, residual ASD present with diameter of approximately 0.04 cm. There is intermittent left to right interatrial shunt on color Doppler. Agitated saline administration at rest and with Valsalva demonstrates intermittent shunting. Qp:Qs ratio=1.1 (LVOT=2.1 cm, RVOT=3.2 cm, LVOT VTI=24.5 cm, RVOT VTI=9.5 cm). Mild TR. RVSP 19 mmHg + RA pressure. In the setting of residual ASD being very small with only intermittent shunting, further evaluation for alternative etiologies of RV dysfunction is recommended. Electronically signed by : Marylou Garcia MD 11/10/2023 23:58:38
[2023-11-05 08:55] LABS: INR 1.03 (0.9-1.1); Prothrombin Time 11.1 seconds (10.1-12.5)
[2023-11-05 09:01] LABS: Urine Pregnancy, HCG Qual. Negative (Negative)
[2023-11-05 09:41] VITALS: O2SAT 98
[2023-11-05 10:30] VITALS: BP 135/57; PULSE 78; RESP 15; TEMP 36.2; O2SAT 92
[2023-11-05 10:40] VITALS: BP 95/65; PULSE 79; RESP 16; O2SAT 94
[2023-11-05 10:50] VITALS: BP 124/67; PULSE 78; RESP 17; O2SAT 96
== END 2023-11-05 11:00 | disposition home or self-care (01) ==
PROVIDERS: PCP Internal Medicine; Visit Provider Internal Medicine
DX: R93.1 Abnormal findings on diagnostic imaging of heart and coronary circulation (principal); Z87.74 Personal history of (corrected) congenital malformations of heart and circulatory system; G47.9 Sleep disorder, unspecified; R06.09 Other forms of dyspnea; R06.83 Snoring; Z79.899 Other long term (current) drug therapy
CPT/HCPCS: 80053; 81025; 85025; 85610; 93005; 93270; 93312; 93319

== ENCOUNTER → 2023-12-08 13:57 | Outpatient (CLI) | payer BC, SELFPAY | PROVIDERS: Visit Provider Nurse Practitioner | DX: Z87.74 Personal history of (corrected) congenital malformations of heart and circulatory system (principal); G47.9 Sleep disorder, unspecified; R06.83 Snoring | CPT/HCPCS: G0399 ==